=== PATIENT | female | born 1990 | race Caucasian/White ===

== ENCOUNTER 2020-10-20 09:51 | Inpatient (IN) | payer OTHER ==
[2020-10-20 10:06] VITALS: BMI 29.8
[2020-10-20] MEDS ORDERED: SODIUM CHLORIDE 0.9% 1000 ML INFUS.BAG IV ONE (10:47)
[2020-10-20 11:29] LABS: BASO % 0.3 % (0-2.0); EOS % 0.1 % (0-4.5); HEMATOCRIT 38.7 % (32.4-45.2); HEMOGLOBIN 12.9 GM/dL (10.7-15.3); LYMPH % 8.3 % (8-40); MCH 28.2 pg (25.7-33.7); MCHC 33.4 g/dl (32.0-36.0); MEAN CELL VOLUME 84.5 fl (80-96); MEAN PLT VOLUME 8.7 fl (7.5-11.1); MONO % 4.3 % (3.8-10.2); PLATELET COUNT 322 10^3/uL (134-434); RBC 4.58 M/mm3 (3.60-5.2); RDW 13.6 % (11.6-15.6); WHITE BLOOD COUNT 16.8 K/mm3 (4.0-10.0)
[2020-10-20 11:33] LABS: CALCIUM 9.4 mg/dL (8.5-10.1)
[2020-10-20 11:34] LABS: ALBUMIN 4.1 g/dl (3.4-5.0); BLOOD UREA NITROGEN 8.2 mg/dL (7-18)
[2020-10-20 11:36] LABS: INR 1.14 (0.83-1.09); PROTHROMBIN TIME (PATIENT) 13.7 SEC (9.7-13.0)
[2020-10-20 11:37] LABS: CREATININE 0.9 mg/dL (0.55-1.3)
[2020-10-20 11:39] LABS: ACTIVATED PTT 33.7 SECONDS (25.2-36.5); BILIRUBIN,TOTAL 1.2 mg/dL (0.2-1); TOT PROT 8.2 g/dl (6.4-8.2)
[2020-10-20 12:19] LABS: URINE APPEARANCE CLEAR; URINE BILIRUBIN NEGATIVE (NEGATIVE); URINE COLOR YELLOW; URINE GLUCOSE (UA) NEGATIVE (NEGATIVE); URINE KETONE 4+ (NEGATIVE); URINE LEUK ESTERASE NEGATIVE (NEGATIVE); URINE NITRITE NEGATIVE (NEGATIVE); URINE PROTEIN NEGATIVE (NEGATIVE)
[2020-10-20] MEDS ORDERED: MIDAZOLAM HCL 2 MG/2 ML SINGLE DOSE VIAL ONE (12:39)
[2020-10-20] MEDS ORDERED: SODIUM CHLORIDE 1,000 ML IV SCH (13:00)
[2020-10-20] MEDS ORDERED: cefTRIAXone SODIUM 1 GM VIAL ONE (13:02)
[2020-10-20] MEDS ORDERED: cefTRIAXone SODIUM 1 GM VIAL IVPB ONE (13:09)
[2020-10-20] MEDS ORDERED: ACETAMINOPHEN 1000 MG/100 ML VIAL (NON FORMULARY) IVPB PRN (13:28)
[2020-10-20] MEDS ORDERED: PANTOPRAZOLE SODIUM 40 MG in SODIUM CHLORIDE 100 ML IVPB SCH (13:30)
[2020-10-20] MEDS ORDERED: DEXTROSE 5%-LACTATED RINGERS 1,000 ML IV SCH (13:30)
[2020-10-20] MEDS ORDERED: PANTOPRAZOLE SODIUM 40 MG VIAL IVPB SCH (14:00)
[2020-10-20] MEDS ORDERED: METOCLOPRAMIDE HCL 10 MG TABLET (FP) PO SCH (16:30)
[2020-10-20 18:06] VITALS: BP 135/80; PULSE 92; TEMP 98.5
== END 2020-10-20 18:23 | disposition home or self-care (01) | DRG 328 ==
LOC: JER 09:51 → JERBED 10:29 → OBSVTOIN 12:48 → J6S 16:17
PROVIDERS: ADMIT Internal Medicine; ATTEND Internal Medicine
PROC: 0DP Gastrointestinal System, Removal (ICD-10-PCS; principal; 2020-10-20 11:30)
DX: K95.89 Other complications of other bariatric procedure (principal); Y84.8 Other medical procedures as the cause of abnormal reaction of the patient, or of later complication, without mention of misadventure at the time of the procedure; E66.9 Obesity, unspecified; Z68.29 Body mass index [BMI] 29.0-29.9, adult; Z98.84 Bariatric surgery status
CPT/HCPCS: 36415; 71045-TC-FY; 74019-TC-FY; 80053; 81003; 84703; 85025; 85610; 85730; 86900; 87086; 93005; 93010; 99285-25; C9803; G0378; U0003; U0005